=== PATIENT | male | born 1990 | race American Indian/Alaskan Native ===

== ENCOUNTER 2017-11-07 18:28 | Emergency (ER) | payer OTHER ==
[2017-11-07 18:47] VITALS: BP 135/84
--- NOTE | 2017-11-07 20:01 | Emergency Department Report ---
Chief Complaint: Upper Respiratory Infection Stated Complaint: COLD Time Seen by Provider: 11/07/17 19:44 - HPI History of Present Illness: Patient is a 27-year-old -[place] male who has had 2 days of cough is productive of clear sputum patient denies any headaches sore throat and body aches and nausea vomiting diarrhea or any other flulike symptoms he simply just has a cough. His job is requiring him to get a work note since he did not come to work today and he decided to come to the emergency department - ROS Review of Systems: Review of systems is negative except for those elements in HPI - Exam Vital Signs: Vital Signs 11/07/17 18:44 Temperature 98.2 F Pulse Rate 97 H Respiratory 18 Rate Blood Pressure 135/84 O2 Sat by Pulse 98 Oximetry Physical Exam: Focused physical exam patient's lungs are clear to auscultation heart S1-S2 no murmurs gallops or rub abdomen soft nontender patient in no acute distress MSE screening note: Focused history and physical exam performed. Due to findings the following was ordered: ED Medical Decision Making - Medical Decision Making Patient will continue to do [id number] meds will be given a work note for today ED Disposition for MSE Clinical Impression: Upper respiratory infection Disposition: DC-01 TO HOME OR SELFCARE Is pt being admited?: No Does the pt Need Aspirin: No Condition: Fair Referrals: LEON RICHARD MD [Primary Care Provider] - 3-5 Days Forms: Work/School Release Form(ED)
== END 2017-11-07 20:04 | disposition home or self-care (01) ==
LOC: ED 18:28
DX: J06.9 Acute upper respiratory infection, unspecified (principal)
CPT/HCPCS: 99282

== ENCOUNTER 2017-11-14 11:36 | Emergency (ER) | payer OTHER ==
[2017-11-14 11:56] VITALS: BP 131/83
[2017-11-14] MEDS ORDERED: MOTRIN PO ONE (13:11)
[2017-11-14] MEDS ORDERED: BOOSTRIX IM ONE (13:11)
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
== END 2017-11-14 13:40 | disposition home or self-care (01) ==
LOC: ED 11:36
DX: S80.01XA Contusion of right knee, initial encounter (principal); S30.811A Abrasion of abdominal wall, initial encounter; J45.909 Unspecified asthma, uncomplicated; V47.6XXA Car passenger injured in collision with fixed or stationary object in traffic accident, initial encounter; Y93.89 Activity, other specified; Y92.89 Other specified places as the place of occurrence of the external cause; Y99.8 Other external cause status
CPT/HCPCS: 90471; 90715